=== PATIENT | male | born 1980 | race Caucasian/White ===

== ENCOUNTER 2022-01-05 10:37 | Outpatient (CLI) | payer OTHER, SELFPAY ==
[2022-01-05 21:47] LABS: Albumin* 5.2 g/dL (3.3-5.0)
[2022-01-05 21:48] LABS: Chloride* 100 mmol/L (96-114); Sodium* 140 mmol/L (135-149)
[2022-01-05 21:50] LABS: Carbon Dioxide* 30 mmol/L (20-32); Cholesterol* 189 mg/dL (90-199); Creatinine* 1.1 mg/dL (0.5-1.5); Estimated Glomerular Filt Rate 86 ml/min
[2022-01-05 21:51] LABS: Alanine Aminotransferase* 33 U/L (4-50); Alkaline Phosphatase* 63 U/L (40-150); Aspartate Amino Transferase* 37 U/L (12-35); Bilirubin Total* 0.7 mg/dL (0.1-1.5); Blood Urea Nitrogen* 15 mg/dL (5-24); Glucose* 100 mg/dL (60-115); HDL Cholesterol* 49 mg/dL (>=40); LDL Cholesterol Calculated 124 mg/dL (<100); Total Protein* 8.3 g/dL (6.0-8.3); Triglycerides* 78 mg/dL (40-149)
== END 2022-01-05 10:38 | disposition home or self-care (01) ==
PROVIDERS: PCP Family Medicine; Visit Provider Family Medicine
DX: Z00.00 Encounter for general adult medical examination without abnormal findings (principal); R35.0 Frequency of micturition; Z13.1 Encounter for screening for diabetes mellitus; Z13.6 Encounter for screening for cardiovascular disorders
CPT/HCPCS: 80053; 80061; 87086

== ENCOUNTER 2023-03-23 07:30 | Outpatient (CLI) | payer BC, SELFPAY | END 2023-03-23 07:31 | disposition home or self-care (01) | LOC: NFLDREF 03-24 14:48 | PROVIDERS: PCP Family Medicine; Referring Provider Family Medicine; Visit Provider Family Medicine | DX: Z00.00 Encounter for general adult medical examination without abnormal findings (principal); E66.01 Morbid (severe) obesity due to excess calories; L30.4 Erythema intertrigo | CPT/HCPCS: 80053; 80061 ==